=== PATIENT | male | born 1940 | race Caucasian/White ===

== ENCOUNTER 2019-12-15 11:41 | Outpatient (REF) | payer MEDICARE, OTHER, SELFPAY | END 2019-12-15 11:42 | disposition home or self-care (01) | LOC: HO.LAB 11:41 | PROVIDERS: PCP Internal Medicine; Visit Provider Internal Medicine | DX: Z20.828 Contact with and (suspected) exposure to other viral communicable diseases (principal) | CPT/HCPCS: 36415; 87635 ==